=== PATIENT | male | born 1970 | race Caucasian/White ===

== ENCOUNTER 2019-06-14 12:32 | Emergency (ER) | payer BC ==
[~2019-06-14] VITALS: Ht 182.9 cm; Wt 138.6 kg
[~2019-06-14 12:32] MED LIST: ACETAMINOPHEN-1 EAC1 PO; CLEOCIN HCL300 MG PO; FLEXERIL PO; HYDROCODON-ACE1 EAC7 PO; HYDROCODONE-AP1 EAC6 PO; KEFLEX500 MG PO; NAPROSYN500 MG PO; NOHOMEMEDICATIONS; NORCO 5-325 TA1 EACH PO
[2019-06-14 13:38] LABS: URINE BILIRUBIN NEGATIVE (Negative); URINE BLOOD NEGATIVE (Negative); URINE CLARITY CLEAR; URINE COLOR YELLOW; URINE GLUCOSE-RANDOM* NEGATIVE (Negative); URINE KETONES NEGATIVE (Negative); URINE LEUKOCYTES-REFLEX NEGATIVE (Negative); URINE NITRITE-REFLEX NEGATIVE (Negative); URINE PROTEIN (DIPSTICK) TRACE (Negative)
[2019-06-14 13:58] LABS: ABSOLUTE NEUTROPHILS 8.7 thou/uL (1.4-8.2); BASOPHILS 0.5 % (0.0-2.0); EOSINOPHILS 2.8 % (0.0-3.0); HEMATOCRIT 37.9 % (42.0-52.0); HEMOGLOBIN 12.4 gm/dL (14.0-18.0); LYMPHOCYTES 12.2 % (24.0-44.0); MCH 25.9 pg (26.0-34.0); MCHC 32.6 g/dL (28.0-37.0); MCV 79.5 fL (80.0-100.0); MONOCYTES 7.1 % (1.0-8.0); PLATELET COUNT 223 thou/uL (150-400); POLYS 77.4 % (36.0-66.0); RBC 4.77 mil/uL (4.50-6.00); RDW 15.9 % (10.5-14.5); WBC 11.2 thou/uL (4.0-11.0)
[2019-06-14 14:03] LABS: CALCIUM 9.2 mg/dL (8.5-10.1); POTASSIUM 4.3 mmol/L (3.5-5.1)
[2019-06-14 14:08] LABS: ALBUMIN 3.3 g/dL (3.4-5.0); DIRECT BILIRUBIN 0.3 mg/dL (<0.1-0.3); TOTAL BILIRUBIN 1.1 mg/dL (<0.1-1.0); TOTAL PROTEIN 7.3 g/dL (6.4-8.2)
[2019-06-14] MEDS ORDERED: CYCLOBENZAPRINE5 MG PO (15:17)
[2019-06-14] MEDS ORDERED: NORCO 5-325 TA1 EAC1 PO (15:17)
[2019-06-14 15:37] VITALS: BP 130/85
== END 2019-06-14 15:38 | disposition home or self-care (01) ==
LOC: ER 12:32
PROVIDERS: Emergency Medicine
DX: K92.2 Gastrointestinal hemorrhage, unspecified (principal); Z88.6 Allergy status to analgesic agent; Z88.0 Allergy status to penicillin; Z88.8 Allergy status to other drugs, medicaments and biological substances

== ENCOUNTER 2019-08-08 16:24 | Inpatient (IN) | payer BC ==
[~2019-08-08] VITALS: Ht 182.9 cm; Wt 135.2 kg
[~2019-08-08 16:24] MED LIST changes: +CYCLOBENZAPRINE5 MG PO; +NORCO 5-325 TA1 EAC1 PO
[2019-08-08 16:30] VITALS: BP 137/77
[2019-08-08 17:44] LABS: ABSOLUTE NEUTROPHILS 8.3 thou/uL (1.4-8.2); EOSINOPHILS 3.9 % (0.0-3.0); HEMATOCRIT 40.2 % (42.0-52.0); HEMOGLOBIN 12.6 gm/dL (14.0-18.0); MCH 25.1 pg (26.0-34.0); MCHC 31.3 g/dL (28.0-37.0); MONOCYTES 8.6 % (1.0-8.0); PLATELET COUNT 219 thou/uL (150-400); POLYS 74.5 % (36.0-66.0); RBC 5.02 mil/uL (4.50-6.00); RDW 16.6 % (10.5-14.5); WBC 11.1 thou/uL (4.0-11.0)
[2019-08-08 17:53] LABS: ANION GAP 9 mmol/L (7-16); BUN 17 mg/dL (7-18); CALCIUM 8.8 mg/dL (8.5-10.1); CHLORIDE 102 mmol/L (98-107); CO2 29 mmol/L (21-32); GLUCOSE 116 mg/dL (74-106); POTASSIUM 4.4 mmol/L (3.5-5.1); SODIUM 140 mmol/L (136-145)
[2019-08-08 18:03] LABS: ALBUMIN 3.5 g/dL (3.4-5.0); SGOT 28 U/L (15-37); SGPT 32 U/L (30-65); TOTAL BILIRUBIN 1.1 mg/dL (<0.1-1.0); TOTAL PROTEIN 7.5 g/dL (6.4-8.2); TROPONIN-I <0.06 ng/mL (<0.06)
[2019-08-08 19:58] VITALS: BP 132/73
[2019-08-08 20:13] VITALS: BP 125/83
[2019-08-08 20:19] LABS: CHOLESTEROL 161 mg/dL (<200); HDL CHOLESTEROL 29 mg/dL (>40); LDL CHOLESTEROL 120 mg/dL (<100); SERUM ASSESSMENT Clear; TC:HDL 5.6 Ratio (Not establshd); TRIGLYCERIDE 60 mg/dL (<150); VLDL 12 mg/dL (<40)
[2019-08-08 22:06] VITALS: BP 142/84
[2019-08-09 05:00] VITALS: BP 141/90
[2019-08-09 05:07] LABS: GLYCOHEMOGLOBIN (HGB A1C) 6.3 % (4.8-5.6)
--- NOTE | 2019-08-09 05:58 | NUR ---
ASSUME CARE 2200. PT/VITALS STABLE. DENIES ANY PAIN. DIFFICULTY BREATHING BOTED WITH O2 SATS T 94%. 2L NC FR COMFORT. RESTING WELL. VOIDING COPIOUS AMOUNT DUE TO LASIX IV GIVEN. CARDIOLOGY AND PULMONARY CONSULTS. ASSESSMENT CHARTED. ST ON MONITOR. WILL FOLLOW WIHT POC FROM CARIOLOGY AND PULMONARY STAND POINT. WILL CONTINUE TO MONITOR PATIENT
[2019-08-09 06:32] LABS: HEMATOCRIT 38.8 % (42.0-52.0); HEMOGLOBIN 11.9 gm/dL (14.0-18.0); MCH 24.8 pg (26.0-34.0); MCHC 30.6 g/dL (28.0-37.0); RBC 4.78 mil/uL (4.50-6.00); RDW 16.7 % (10.5-14.5); WBC 11.2 thou/uL (4.0-11.0)
[2019-08-09 06:42] LABS: CALCIUM 8.6 mg/dL (8.5-10.1); CREATININE 0.9 mg/dL (0.7-1.3); POTASSIUM 4.4 mmol/L (3.5-5.1)
[2019-08-09 07:26] VITALS: BP 146/73
--- NOTE | 2019-08-09 10:19 | EKG ---
[address] [employer] [place] [address] ELECTROCARDIOGRAM REPORT Name: BHAVANA LARSON Room #: 218-P ADM IN M.R.#: [id number] Admission: 08/08/19 Attend Phys: Miguel Dixon Discharge: Date of : 74 Report #: [id number] THIS REPORT FOR: //name// [facility] ED Test Date: 2019-08-08 Test Time: 16:35:02 Pat Name: BHAVANA LARSON Department: Room: 218 Gender: M Alemite Operator: REBECCA : 1970 Requested By: Giselle Hicks Order Number: [id number] MD: Hubert Domínguez Measurements Intervals [place] Rate: 103 P: 60 VT: 180 QRS: 66 QRSD: 86 T: 263 QT: 335 QTc: 439 Interpretive Statements Sinus tachycardia Left atrial enlargement ST segment abnormalities in the anterolateral leads, rule out ischemia No previous ECG available for comparison Electronically Signed On 08-09-2019 10:19:13 CDT by Hubert Domínguez [email or web address] <ELECTRONICALLY SIGNED> By: Hubert Domínguez MD 08/09/19 1019 1635 1635 Hubert Domínguez MD /EPI
[2019-08-09 12:04] VITALS: BP 114/59
[2019-08-09 15:15] VITALS: BP 139/73
--- NOTE | 2019-08-09 15:49 | 2DMMODE ---
[facility] [address] [place] [address] 2 D/M-MODE ECHOCARDIOGRAM Name: BHAVANA LARSON Room #: 218-P [facility] IN ..#: [id number] Admission: 08/08/19 Attend Phys: Miguel Pitts Discharge: Date of : 74 Report #: [id number] THIS REPORT FOR: //name// APPROVED REPORT Study performed: 08/09/2019 09:57:08 EXAM: Comprehensive 2D, Doppler, and color-flow Echocardiogram Patient Location: In-Patient Room #: 218 Status: routine BSA: 2.58 HR: 111 bpm BP: 130/84 mmHg Rhythm: Tachycardia Other Information Study Quality: Fair Technically limited study due to body habitus. Echo Enhancing Agent Indication: Endocardial border delineation Agent(s) / Amount(s) Used: Optison 3 cc 2D Dimensions IVSd: 16.96 (7-11mm) LVOT Diam: 25.19 (18-24mm) LVDd: 38.87 mm PWd: 18.10 (7-11mm) Ascending Ao: 31.58 (22-36mm) LVDs: 24.53 (25-40mm) Left Atrium: 53.32 (27-40mm) Aortic Root: 34.81 mm Volumes Left Atrial Volume (Systole) Single Plane 4CH: 48.72 mL Single Plane 2CH: 52.47 mL Aortic Valve AoV Peak Juan Francisco.: 1.15 m/s AO Peak Gr.: 5.25 mmHg AO Mean Gr.: 2.32 mmHg AO V2 Mean: 0.69 m/s AO V2 VTI: 17.16 cm Pulmonary Valve PV Peak Juan Francisco.: 0.72 m/s PV Peak Gr.: 2.09 mmHg [facility] [address] [address] 2 D/M-MODE ECHOCARDIOGRAM Name: BHAVANA LARSON Room #: 218-P [facility] IN ..#: [id number] Admission: 08/08/19 Attend Phys: Miguel Mojica Mar Discharge: Date of : 74 Report #: [id number] Left Ventricle The left ventricle is normal size. Moderate concentric left ventricular hypertrophy. The left ventricular systolic function is normal. The left ventricular ejection fraction is within the normal range. LVEF is 60-65%. This study is not technically sufficient to allow evaluation of the LV diastolic function. Right Ventricle Right ventricle is not well visualized. Atria The left atrium size is normal. Right atrium is at the upper limits of normal. Aortic Valve The aortic valve is normal in structure. No aortic regurgitation is present. Mitral Valve The mitral valve is normal in structure. Mild mitral regurgitation. Tricuspid Valve The tricuspid valve is normal in structure. There is no tricuspid valve regurgitation noted. Pulmonic Valve There is no pulmonic valvular regurgitation. Great Vessels The aortic root is normal in size. The ascending aorta is normal in size. IVC is normal in size and collapses <50% with inspiration. Pericardium There is no pericardial effusion. <Conclusion> Technically difficult study The left ventricle is normal size. Moderate concentric left ventricular hypertrophy. The left ventricular systolic function is normal. Right ventricle is not well visualized. The left atrium size is normal. The aortic valve is normal in structure. [facility] [address] [place] [address] 2 D/M-MODE ECHOCARDIOGRAM Name: BHAVANA LARSON Room #: 218-P [facility] IN [facility].#: [id number] Admission: 08/08/19 Attend Phys: Miguel Pitts Discharge: Date of : 74 Report #: [id number] Mild mitral regurgitation. There is no tricuspid valve regurgitation noted. <ELECTRONICALLY SIGNED> By: Hubert Domínguez MD 08/09/19 1549 154 48 Hubert Domínguez MD /INF
--- NOTE | 2019-08-09 16:40 | NUR ---
Assumed pt care this am, ST on the monitor but with no signs of disitress noted. Fluid restriction of 1750 maintianed alotted 1000 ml for the day and 750 at night. Pt has learning defieciencies and seems not to retain information given like multiple education sessions on fluid restriction and what kinds fall under fluids (jello). Pt would ask for fluids and any kind of food through out the day. Edema has been noted on all extremitied and more prominent on the feet. Pt is able to urinate using the urinal for measure I & O monitered. Pt claimed to have been coughing for years and wanted to inform the MD that they are requesting for a cough drop, informed Dr. Yusuf. Pt refused to have more activity due to sob. No pain has been verbalized. POC followed, no signs or verbalization sof distress have been noted.
[2019-08-09 20:13] VITALS: BP 132/70
[2019-08-09 23:28] VITALS: BP 125/74
--- NOTE | 2019-08-10 03:58 | NUR ---
ASSESSMENT DOCUMENTED.PT BEEN RESTING IN NO ACUTE DISTRESS.VSS.ON NOCTURNAL STUDIES.VSS.A/OX4.C/O MUSCLE SPASMS ASKING FOR BIOFREEZE,TANGIBLE PERSONAL PROPERTY APPRAISER NOTIFIED MARILIA SIFUENTES ORDERED.C/O COUGH THAT WAS CONTROLLED BY COUGH MEDICINE. AT BEDSIDE.POC IS TO CONT WITH ORDERS.
[2019-08-10 04:56] LABS: CALCIUM 8.5 mg/dL (8.5-10.1); CREATININE 1.1 mg/dL (0.7-1.3); POTASSIUM 4.2 mmol/L (3.5-5.1)
[2019-08-10 04:59] VITALS: BP 100/46
[2019-08-10 05:37] LABS: HEMATOCRIT 37.3 % (42.0-52.0); HEMOGLOBIN 11.8 gm/dL (14.0-18.0); MCH 25.4 pg (26.0-34.0); MCHC 31.6 g/dL (28.0-37.0); MCV 80.3 fL (80.0-100.0); RBC 4.65 mil/uL (4.50-6.00); WBC 9.9 thou/uL (4.0-11.0)
--- NOTE | 2019-08-10 07:27 | HC ---
[facility] [place] [address] CONSULTATION Name: BHAVANA LARSON Room #: 218-P [facility] IN M.R.#: [id number] Admission: 08/08/19 Attend Phys: Miguel Dixon Discharge: Date of : 74 Report #: [id number] THIS REPORT FOR: //name// CC: SAMANTHA physician/PCP Miguel Dixon DATE OF SERVICE: 08/09/2019 CARDIOLOGY CONSULTATION INDICATION: Dyspnea. HISTORY OF PRESENT ILLNESS: This is a 48-year-old gentleman with a history of bronchitis, obesity, noncompliance, presenting with dyspnea and near syncope. He reports having progressive dyspnea with exertion over the past year or so. The other day, after walking about 20 yards, he developed significant dyspnea and lightheadedness. He almost passed out. He denies any episodes of exertional angina. There is no history of palpitations or orthopnea. He has not seen a doctor in several years. He was diagnosed with tachycardia several years ago and prescribed metoprolol. However, he has not been taking any prescription medications. He used to smoke cigarettes, has not smoked in a few years. He does drink alcohol, once a week. There is no history of fever, chills or diarrhea. PAST MEDICAL HISTORY: Bronchitis, meningitis. ALLERGIES: ASPIRIN, PENICILLIN AND COMPAZINE. MEDICATIONS: None. SOCIAL HISTORY: Former tobacco use. Drinks alcohol once a week. FAMILY HISTORY: Negative for premature CAD. REVIEW OF SYSTEMS: A full 10-point review of systems performed. Only the pertinent positives and negatives are described in the HPI. PHYSICAL EXAMINATION: VITAL SIGNS: Blood pressure is 146/70, heart rate is 100 beats per minute. GENERAL APPEARANCE: An overweight male in no acute distress. HEENT: Normocephalic, atraumatic. Oral mucosa moist. NECK: Supple. LUNGS: Clear to auscultation. CARDIAC: Regular rate and rhythm, S1, S2 positive. ABDOMEN: Soft, nontender. EXTREMITIES: No cyanosis, 2-3+ bilateral lower extremity edema. [facility] [address] [place] [address] CONSULTATION Name: BHAVANA LARSON Room #: 218-P [facility] IN .R.#: [id number] Admission: 08/08/19 Attend Phys: Miguel Dixon Discharge: Date of : 74 Report #: [id number] ECG reveals sinus tachycardia at 103 beats per minute, ST segment depressions in the inferior and anterolateral leads, rule out ischemia. LABORATORY VALUES: White count is 11.2, hemoglobin is 11.9, creatinine is 1.0. Troponin is negative. BNP is elevated at 4023. ASSESSMENT AND PLAN: 1. Dyspnea on exertion, the etiology is unclear, partly related to deconditioning and obesity. He has not seen a physician in several years. Does not appear to be in overt heart failure. We will need an echocardiogram to assess his LV function. 2. Abnormal ECG, may be related to undiagnosed hypertension. We will need an ischemic evaluation given his presentation. 3. Hypertension, mildly elevated blood pressure. Start low dose beta mady for now. 4. Edema, continue with diuresis at this time. Check venous ultrasound. <ELECTRONICALLY SIGNED> By: Hubert Domínguez MD 08/10/19 0727 1034 0021 Hubert Domínguez MD /nt
[2019-08-10 11:52] VITALS: BP 93/55
[2019-08-10 15:41] VITALS: BP 106/64
[2019-08-10 20:00] VITALS: BP 126/73
--- NOTE | 2019-08-11 03:50 | NUR ---
ASSUMED PT CARE AT 1900. PT C/O OF PAIN AND SOB WHEN MOVING AND COUGHING. GAVE PM MEDS WITH COUGH MEDICINE AND PT C/O RINGING SOUND IN EARS WHILE SITTING. ADVISED PT THAT IF DIZZY WHEN TRYING TO GET UP TO CALL. PT AT BEDSIDE. PT IS NPO AT MIDNIGHT TO PREPARE FOR STRESS TEST TODAY. PT HAS VARIOUS CONCERNS ABOUT HEALTH AND ADVISED WOULD NEED TO SPEAK WITH PHYSICIAN WHEN ROUNDS ARE MADE. PT SLEPT THRU NIGHT. WILL CONTINUE TO MONITOR PER POC.
[2019-08-11 04:00] VITALS: BP 120/76
[2019-08-11 05:06] LABS: HEMOGLOBIN 12.1 gm/dL (14.0-18.0); MCV 80.6 fL (80.0-100.0); RBC 4.84 mil/uL (4.50-6.00); RDW 16.8 % (10.5-14.5); WBC 9.4 thou/uL (4.0-11.0)
[2019-08-11 05:13] LABS: CALCIUM 8.7 mg/dL (8.5-10.1); CREATININE 1.2 mg/dL (0.7-1.3); POTASSIUM 4.8 mmol/L (3.5-5.1)
--- NOTE | 2019-08-11 15:54 | NUR ---
ASSUMED CARE AT 0700, SHIFT ASSSESSMENT DONE, NPO SINCE LAST NIGHT FOR NM STRESS TEST TODAY. [facility] WAS CALLED AND BECAUSE THEY HAVE A MACHINE DONE, IT WAS DELAYED UNTIL 1300. CAME BACK FROM PROCEDURE AT 1500. ATE LUNCH, NSR ON TELE. WILL CONTINUE TO ASSESS AND ASSIST WITH ADLs A NEEDED.
[2019-08-11 19:39] VITALS: BP 107/57
[2019-08-12 04:38] VITALS: BP 129/78
[2019-08-12 06:12] LABS: CALCIUM 8.7 mg/dL (8.5-10.1); CREATININE 1.2 mg/dL (0.7-1.3); POTASSIUM 4.6 mmol/L (3.5-5.1)
--- NOTE | 2019-08-12 06:41 | NUR ---
ASSUMED PT CARE AT 1900. PT VSS WITH NO C/O OF PAIN. RAC IV INFILTRATED PLACED LAC 20G. PT HAS BEEN NPO SINCE MIDNIGHT FOR STRESS TEST TODAY. PT C/O PAIN TOWARDS 0600 PRN MEDICATION ADMINISTERED AND SEEMS TO BE WORKING PT IS SLEEP. WILL CONTINUE TO MONITOR PER POC.
[2019-08-12 08:40] VITALS: BP 139/90
[2019-08-12 12:29] VITALS: BP 116/76
[2019-08-12] MEDS ORDERED: COREG6.25 MG PO (14:25)
[2019-08-12] MEDS ORDERED: PROAIR HFA8.5 GM INH (14:26)
[2019-08-12] MEDS ORDERED: CLINDAMYCIN HC300 MG PO (14:33)
[2019-08-12] MEDS ORDERED: TORSEMIDE20 MG PO (14:33)
[2019-08-12 14:53] VITALS: BP 116/76
--- NOTE | 2019-08-12 15:30 | NUR ---
PT CARE ASSUMED APPROX 0700. PT ALERT AND ORIENTED X4. DENIES PAIN AND SOA. VSS. UP WITH STEADY GAIT. DISCHARGE EDUCATION DONE WITH PT AND SPOUSE. BOTH DENY QUESTIONS OR CONCERNS REGARDING DISCHARGE INFORMATION OR POST HOSPITAL CARE. ALL BELONGINGS IN PT POSSESSION. IV OUT, TELE BOX OFF. HOSPITAL STAFF TO ESCORT PT OUT TIMELY.
== END 2019-08-12 15:42 | disposition home or self-care (01) | DRG 292 ==
LOC: ER 16:24 → EROBS 19:39 → 2N 19:39 → ENTRNSPT 08-12 15:25 → EDTRNSPTSTS 08-12 15:37 → 2N 08-12 15:42
PROVIDERS: Hospitalist; Internal Medicine Cardiovascular Disease; Nurse Practitioner Family; Physician Assistant; ADMIT Hospitalist
DX: I11.0 Hypertensive heart disease with heart failure (principal); I50.33 Acute on chronic diastolic (congestive) heart failure; R59.1 Generalized enlarged lymph nodes; F10.10 Alcohol abuse, uncomplicated; E66.01 Morbid (severe) obesity due to excess calories; F17.210 Nicotine dependence, cigarettes, uncomplicated; Z68.41 Body mass index [BMI] 40.0-44.9, adult; Z88.6 Allergy status to analgesic agent; Z88.0 Allergy status to penicillin; Z88.8 Allergy status to other drugs, medicaments and biological substances
CPT/HCPCS: 10081

== ENCOUNTER 2019-09-02 16:00 | Inpatient (IN) | payer BC ==
[~2019-09-02] VITALS: Ht 182.9 cm; Wt 142.7 kg
[2019-09-02 16:00] VITALS: BP 116/75
[~2019-09-02 16:00] MED LIST changes: +CLINDAMYCIN HC300 MG PO; +COREG6.25 MG PO; +PROAIR HFA8.5 GM INH; +TORSEMIDE20 MG PO
[2019-09-02 17:03] LABS: ABSOLUTE NEUTROPHILS 7.8 thou/uL (1.4-8.2); EOSINOPHILS 3.7 % (0.0-3.0); HEMATOCRIT 37.2 % (42.0-52.0); HEMOGLOBIN 11.8 gm/dL (14.0-18.0); LYMPHOCYTES 13.5 % (24.0-44.0); MCH 25.1 pg (26.0-34.0); MCHC 31.8 g/dL (28.0-37.0); MCV 78.9 fL (80.0-100.0); PLATELET COUNT 199 thou/uL (150-400); POLYS 73.8 % (36.0-66.0); RBC 4.72 mil/uL (4.50-6.00); RDW 17.2 % (10.5-14.5); WBC 10.5 thou/uL (4.0-11.0)
[2019-09-02] MEDS ORDERED: FLEXERIL PO (17:10)
[2019-09-02 17:11] LABS: CALCIUM 8.8 mg/dL (8.5-10.1); CREATININE 1.1 mg/dL (0.7-1.3)
[2019-09-02] MEDS ORDERED: NORCO 5-325 TA1 EAC1 PO (17:11)
--- NOTE | 2019-09-02 17:11 | EKG ---
[facility] [address] [place] [address] ELECTROCARDIOGRAM REPORT Name: BHAVANA LARSON Room #: [facility] M.R.#: [id number] Admission: Attend Phys: Discharge: Date of : 74 Report #: [id number] THIS REPORT FOR: //name// [facility] ED Test Date: 2019-09-02 Test Time: 16:10:46 Pat Name: BHAVANA LARSON Department: Room: Gender: M Director Of Public Relations: PATRIA : 1970 Requested By: Js Schmitt Order Number: [id number] MD: Manuel Valente Measurements Intervals [place] Rate: 155 P: 61 PA: 102 QRS: 38 QRSD: 118 T: 246 QT: 270 QTc: 434 Interpretive Statements Atrial flutter with 2-1 AV conduction Repol abnrm suggests ischemia, diffuse leads Compared to ECG 08/08/2019 16:35:02 Atrial flutter is now present ST and T wave abnormality is more pronounced Electronically Signed On 09-02-2019 17:11:12 SOCIAL SERVICE TECHNICIAN by aMnuel Valente [email or web address] <ELECTRONICALLY SIGNED> By: Manuel Valente MD, [facility] 09/02/19 1711 1610 09 Manuel Valente MD, [facility] /EPI
[2019-09-02 17:20] LABS: TROPONIN-I 0.42 ng/mL (<0.06)
[2019-09-02 18:11] LABS: AMP/METHAMP Negative (Negative); BARBITURATES Negative (Negative); BENZODIAZEPINES Negative (Negative); COCAINE Negative (Negative); METHADONE Negative (Negative); OPIATES Negative (Negative); PCP Negative (Negative)
[2019-09-02 19:00] LABS: CHOLESTEROL 169 mg/dL (<200); HDL CHOLESTEROL 27 mg/dL (>40); LDL CHOLESTEROL 120 mg/dL (<100); TC:HDL 6.3 Ratio (Not establshd); TRIGLYCERIDE 114 mg/dL (<150); VLDL 23 mg/dL (<40)
[2019-09-02 19:21] VITALS: BP 116/61
[2019-09-02 19:50] VITALS: BP 116/61
[2019-09-02 20:00] VITALS: BP 104/62
[2019-09-03] VITALS (14 sets, daily range): BP systolic 93–114; BP diastolic 51–70
[2019-09-03 03:09] LABS: GLYCOHEMOGLOBIN (HGB A1C) 6.4 % (4.8-5.6)
--- NOTE | 2019-09-03 04:16 | NUR ---
ASSUMED CARE OF PT AT 0300. ALERT AND ORIENTED. VSS, WITH SOFT PRESSURES. ON CARDIZEM DRIP. CURRENTLY AT 10ML/HR. DENIES CHEST PAIN, SOB. ONE EMESIS EPISODE , ZOFRAN GIVEN BEFORE ASSUMING CARE. LUNCH TRAY GIVEN TO PT. REMAIN IN AFIB AFLUTTER RATE CONTROLLED. NO FURTHER C/O NOTED . WILL CONTINUE TO FOLLOW POC.
[2019-09-03 05:25] LABS: HEMATOCRIT 40.7 % (42.0-52.0); HEMOGLOBIN 12.6 gm/dL (14.0-18.0); MCHC 30.9 g/dL (28.0-37.0); RBC 5.03 mil/uL (4.50-6.00); RDW 18.4 % (10.5-14.5)
[2019-09-03 05:41] LABS: ALBUMIN 3.2 g/dL (3.4-5.0); CALCIUM 8.7 mg/dL (8.5-10.1); CREATININE 1.5 mg/dL (0.7-1.3); PHOSPHORUS 6.2 mg/dL (2.5-4.9); POTASSIUM 4.9 mmol/L (3.5-5.1)
--- NOTE | 2019-09-03 14:06 | NUR ---
Case opened to follow for dc planning. Pt is a&ox4 and lives with his . He reports that he works fulltime and was indep and no health issues until recently. He is having a cardiac cath today. He notes increased sob and limited endurance. He is working with his HR dept to access his short term disablity benefits and medical leave. His is supportive. He is feeling overwhelmed with being told he is pre-diabetic and possibley had a mild heart attack. He is hoping the procedure today will informative and help him feel better. Support provided. No cm interventions indicated at this time. Will remain available should dc needs arise.
--- NOTE | 2019-09-03 17:55 | NUR ---
ASSUMED CARE OF PT AT SHIFT CHANGE. ASSESSMENTS CHARTED. MEDS GIVEN PER MAR. A&OX4. PT ON 2L NC. NO C/O PAIN OR SOA. BP SYS DROPPED BELOW 100, STOPPED IV CARDIZEM. NOTIFIED ELECTRIC REFRIGERATOR PREPARER. PT WENT TO LPN, NO INTERVENTIONS. RT GROIN SITE IS CDI. PT SLEEPING. BEDREST DONE AT 1720. PT SBA AFTER BEDREST. AT BEDSIDE. WILL CONTINUE TO MONITOR AND FOLLOW POC.
[2019-09-04] VITALS (7 sets, daily range): BP systolic 103–135; BP diastolic 47–73
--- NOTE | 2019-09-04 04:41 | NUR ---
PT POST CATH. NO HEMATOMA, GROIN CLEAN DRY AND INTACT. PT ALERT AND ORIENTED. REPORTS BACK PAIN DUE TO LAYING ON O.R TABLE FOR LONG.TYLENOL GIVEN X1. PT CONTINUE TO C/O OF BLOOD STOOL. BRIGHT RED BLOOD EVIDENT TOILET. CIGARETTE PACKAGE EXAMINER TOMA NOTIFIED. STOOL SAMPLE SENT TO LAB. NO FURTHER C/O. VSS. WILL CONTINUE TO FOLLOW POC.
[2019-09-04 05:47] LABS: HEMATOCRIT 40.1 % (42.0-52.0); HEMOGLOBIN 12.5 gm/dL (14.0-18.0); MCH 25.4 pg (26.0-34.0); MCHC 31.3 g/dL (28.0-37.0); MCV 81.1 fL (80.0-100.0); RBC 4.95 mil/uL (4.50-6.00); RDW 17.9 % (10.5-14.5); WBC 14.2 thou/uL (4.0-11.0)
[2019-09-04 05:57] LABS: CALCIUM 8.9 mg/dL (8.5-10.1); CREATININE 1.4 mg/dL (0.7-1.3); POTASSIUM 4.9 mmol/L (3.5-5.1)
--- NOTE | 2019-09-04 17:50 | NUR ---
ASSUMED CARE OF PT SHIFT CHANGE. ASSESSMENTS CHARTED. MEDS GIVEN PER MAR. VSS. HR WAS ELEVATED IN AM, NOW IN 60S-70S. PT A&OX4. ON 3L NC. C/O BLOOD IN TOILET AFTER STOOLS. POSSIBLE HEMMROIDS. CONSULTING SURGERY. AT BEDSIDE. WILL CONTINUE TO MONITOR AND FOLLOW POC.
[2019-09-05 03:47] LABS: CALCIUM 8.6 mg/dL (8.5-10.1); CREATININE 1.6 mg/dL (0.7-1.3); POTASSIUM 4.6 mmol/L (3.5-5.1)
--- NOTE | 2019-09-05 03:55 | NUR ---
A/O X 4.UP TO THE CHAIR. IS IN THE ROOM WITH PATIENT.COMPLAIN IV ACCESS HURTS.TRIED TO PLACE A NEW IV ACCESS BUT UNSUCCESFUL.PATIENT DECIDED NOT TO BE STUCK AGAIN AND HE'LL DECIDE TOMORROW IF HE WANTS TO BE STUCK.PATIENT IS HOPING TO GO HOME TODAY.O2 1L NASAL CANNULA TO KEEP SPO2 >92%.MONITOR SHOWS AFLUTTER WITH CONTROLLED RATE.WILL CONTINUE POC.
[2019-09-05 04:17] VITALS: BP 133/58
[2019-09-05] MEDS ORDERED: ELIQUIS5 MG PO (07:48)
[2019-09-05] MEDS ORDERED: CARDIZEM CD 18180 M3 PO (07:48)
[2019-09-05] MEDS ORDERED: LIPITOR40 MG PO (07:48)
[2019-09-05] MEDS ORDERED: ANUSOL-HC25 MG RECTAL (07:49)
[2019-09-05 07:50] VITALS: BP 117/76
[2019-09-05] MEDS ORDERED: CLEOCIN HCL150 MG PO (07:51)
[2019-09-05] MEDS ORDERED: AMARYL2 M1 PO (07:52)
--- NOTE | 2019-09-05 08:58 | CATHLAB ---
[facility] [address] [place] [address] INVASIVE PROCEDURE REPORT Name: BHAVANA LARSON Room #: 206-P ADM IN M.R.#: [id number] Admission: 09/02/19 Attend Phys: Miguel Pitts Discharge: Date of : 74 Report #: [id number] THIS REPORT FOR: //name// APPROVED REPORT Study performed: 09/03/2019 15:08:27 Patient Details Patient Status: In-Patient Room #: 206 The patient is a 48 year-old male Event Personnel Hubert Domínguez Baked And Graphite Inspector, Shayy Ching RN RN, Dora Washington RTR, DIRECTOR OF EVENT MANAGEMENT Monitor, July Stafford Jackson, Sherra RTR Monitor Procedures Performed Art Access - R femoral artery* Left Heart Cath w/or w/o Coronaries [id number] [facility] Hemostasis with Manual pressure 45746 Initial Mod Sed Same Phys/QHP Gr5y [id number] 80339 Mod Sed Same Phys/QHP Ea 552240 Indication CHF Current Status: , Arrhythmia, Dyspnea, The patient presented with atrial flutter with a rapid ventricular rate, significant ST segment depressions in the lateral leads with a positive troponin level. Risk Factors Obesity, HypercholesterolemiaPhysical Activity, Hypertension, Diabetes Previous Procedures/Diagnoses Previous CHF Procedure Narrative The Right Groin^ was infiltrated with 1% Lidocaine subcutaneous anesthesia. A PINNACLE 4FR Sheath #[id number] sheath was inserted into the RFA. Coronary angiography was performed using coronary diagnostic catheters. The right coronary system was accessed and visualized with a JR4 catheter. The left coronary system was accessed and visualized with a JL4 catheter. Left ventricular/Aortic Valve gradient assessed via catheter pullback. Hemostasis was obtained with manual pressure following sheath removal without any complications. The patient tolerated the procedure well and there were no complications [facility] [address] [place] [address] INVASIVE PROCEDURE REPORT Name: BHAVANA LARSON Room #: 206-P [facility] IN ..#: [id number] Admission: 09/02/19 Attend Phys: Miguel Pitts Discharge: Date of : 74 Report #: [id number] associated with the procedure. There was no hematoma. Intraoperative Conscious Sedation Sedation start time: 15:46 Case end Time: 16:10 Fentanyl 50 mcg Versed 1 mg Fluoro Time: 1.33 minutes Dose: DAP 4958.90 cGycm2 699 mGy Contrast Type and Amount: Visipaque 40 ml Coronary Angiography The patient's coronary anatomy is right dominant. Diagnostic Cath Left Main This is a large caliber vessel, patent with no flow-limiting lesions. LAD This is a moderate size caliber vessel, traversing the anterior wall and wrapping around the apex. There are no flow-limiting lesions. There may be minimal luminal irregularities in the midsegment. Diagonal 1 This is a patent vessel with no flow-limiting lesions. Circumflex There is a moderate size caliber vessel, patent with no flow-limiting lesions. OM1 This is a patent vessel with no flow-limiting lesions. OM2 This is a patent vessel with no flow-limiting lesions. Right Coronary There is a dominant vessel, patent with no flow-limiting lesions. R PDA This is a patent vessel with no flow-limiting lesions. RPLV This is a patent vessel with no flow-limiting lesions. Left Ventriculography Left Ventriculography was not performed. Ejection Fraction was >55% based off patient's Echocardiogram. There is no gradient across the outflow tract and the LVEDP is approximately 40 mmHg. Hemodynamics The aortic pressure is 109/74 mmHg with a mean of 84 mmHg. The left ventricular pressure is 104/36 mmHg with a mean of mmHg. The left ventricular end diastolic pressure is 41 mmHg. Conclusion 1. Angiographically normal coronary arteries, with minimal luminal [facility] [address] [place] [address] INVASIVE PROCEDURE REPORT Name: BHAVANA LARSON Greta Room #: 206-P [facility] IN .R.#: [id number] Admission: 09/02/19 Attend Phys: Miguel Pitts Discharge: Date of : 74 Report #: [id number] irregularities in the midsegment of the LAD. 2. Right dominant system. 3. Elevated LVEDP. 4. Recommend aggressive risk factor management and guideline directed medical therapy. <ELECTRONICALLY SIGNED> By: Hubert Domínguez MD 09/05/19856 6 6 Hubert Domínguez MD /INF
[2019-09-05] MEDS ORDERED: K-DUR 20 MEQ T20 MEQ PO (09:15)
[2019-09-05] MEDS ORDERED: DIGOXIN125 MCG PO (09:15)
[2019-09-05] MEDS ORDERED: DEMADEX20 MG PO (09:15)
[2019-09-05] MEDS ORDERED: METOPROLOL SUCC50 MG PO (09:15)
[2019-09-05 09:59] VITALS: BP 117/76
--- NOTE | 2019-09-05 12:09 | EKG ---
[place] [address] [facility] [place] [address] ELECTROCARDIOGRAM REPORT Name: BHAVANA LARSON Room #: 206-P ADM IN M.R.#: [id number] Admission: 09/02/19 Attend Phys: Miguel Dixon Discharge: Date of : 74 Report #: [id number] THIS REPORT FOR: //name// [facility] Test Date: 2019-09-03 Test Time: 08:12:09 Pat Name: BHAVANA LARSON Department: Room: 206 P Gender: M Cold Header Operator: Hector MOHR : 1970 Requested By: Alisa Zapata Order Number: [id number] MD: Hubert Domínguez Measurements Intervals [place] Rate: 95 P: IA: QRS: 91 QRSD: 86 T: 264 QT: 398 QTc: 501 Interpretive Statements Atrial flutter Borderline right axis deviation Abnormal R-wave progression, late transition ST segment abnormalities in the inferolateral leads, no change compared to baseline. Compared to ECG 09/02/2019 16:10:46 No significant changes Electronically Signed On 09-05-2019 12:09:17 COMMERCIAL DOOR INSTALLER by Hubert Domínguez [email or web address] <ELECTRONICALLY SIGNED> By: Hubert Domínguez MD 09/05/19 1209 1 1 Hubert Domínguez MD /EPI
[2019-09-05 12:38] LABS: URINE BILIRUBIN NEGATIVE (Negative); URINE BLOOD NEGATIVE (Negative); URINE CLARITY CLEAR; URINE COLOR YELLOW; URINE GLUCOSE-RANDOM* NEGATIVE (Negative); URINE KETONES NEGATIVE (Negative); URINE LEUKOCYTES-REFLEX NEGATIVE (Negative); URINE NITRITE-REFLEX NEGATIVE (Negative); URINE PROTEIN (DIPSTICK) NEGATIVE (Negative); URINE UROBILINOGEN 0.2 E.U./dl (0.2-1.0)
[2019-09-05 12:52] VITALS: BP 123/62
--- NOTE | 2019-09-05 13:40 | NUR ---
ASSUMED CARE PT AT SHIFT CHANGE. ASSESSMENTS CHARTED. MEDS GIVEN PER DEC. PT ALERT AND ORIENTED, VSS, SPOUSE AT BEDSIDE THROUGHOUYT SHIFT. PT HAD BLOODY STOOL THIS AM, BRIGHT RED. REPORTED TO GI. O2 SATS WNL ON 1L, EVENTUALLY TO ROOM AIR. PT HAD REST AND EXEERCISE, SEE RESULTS. DC ACKNOWLEDGED AND IMPLEMENTED. DC DISCUSSED WITH PT. COMMUNICATES UNDERSTANDING. IV REMOVED, TELE REMOVED. PT LEFT UNIT AT APPROX 1340.
--- NOTE | 2019-09-09 08:09 | HC ---
[facility] [place] [address] CONSULTATION Name: BHAVANA LARSON Room #: 206-P [facility] IN M.R.#: [id number] Admission: 09/02/19 Attend Phys: Miguel Dixon Discharge: 09/05/19 Date of : 74 Report #: [id number] THIS REPORT FOR: //name// CC: Miguel Domínguez DATE OF SERVICE: 09/03/2019 HISTORY OF PRESENT ILLNESS: The patient is a 48-year-old male patient admitted to the hospital through the Emergency Department with atrial flutter and lightheadedness. He had been experiencing some random chest pain. He was originally seen by Dr. Domínguez, Cardiology, in the office. He was noted to have some ulceration and swelling of his legs. I have been asked to see him in this regard. PAST MEDICAL HISTORY: Positive for history of previous meningitis, previous hand fracture, alcohol abuse. He has a past history of heavy smoking. SOCIAL HISTORY: Positive for previous heavy smoking, 5 packs per day until age 32. Admits to occasional alcohol consumption. FAMILY HISTORY: Noncontributory. MEDICATIONS: Include albuterol, torsemide, carvedilol, clindamycin. ALLERGIES: ASPIRIN, PENICILLIN, AND PROCHLORPERAZINE. REVIEW OF SYSTEMS: CONSTITUTIONAL: The patient denies fever or chills. Denies recent weight loss. ENT: The patient denies earache, nasal drainage or sore throat. CARDIOVASCULAR: The patient does complain of some chest discomfort as well as palpitations and diaphoresis. PULMONARY: The patient complains of mild shortness of breath with orthopnea. GASTROINTESTINAL: The patient denies nausea, vomiting, diarrhea or abdominal pain. Does have, however, some bleeding with bowel movements. GENITOURINARY: The patient denies frequency or urgency of urination. Denies dysuria. ORTHOPEDIC: The patient complains of pain and swelling and redness to his lower extremities. Other systems in a 14-point review of systems are negative. PHYSICAL EXAMINATION: VITAL SIGNS: At this time include temperature 98.1, pulse 56, respiratory rate 18, blood pressure 102/62. GENERAL: This is a chronically ill-appearing male patient who appears to be in minimal distress. [facility] [address] [place] [address] CONSULTATION Name: BHAVANA LARSON Room #: 206-P [facility] IN .R.#: [id number] Admission: 09/02/19 Attend Phys: Miguel Dixon Discharge: 09/05/19 Date of : 74 Report #: [id number] HEENT: Head normocephalic. Nose and throat are clear. NECK: Supple. LUNGS: Diminished. HEART: Tachycardic and irregular. ABDOMEN: Soft, obese, nontender. EXTREMITIES: Lower extremities demonstrate diminished, but palpable distal pulses. He has mild erythema and warmth to the legs bilaterally down to the ankle level. NEUROLOGIC: The patient is alert and oriented and appropriate. LABORATORY STUDIES: Include white blood cell count 10.5 with a hemoglobin of 11.8. Sodium 137, potassium 4.0, chloride 100, CO2 of 29, BUN 25, creatinine 1.1, glucose 202. Troponin I is 0.42. CLINICAL IMPRESSION: 1. Bilateral lower extremity edema with venous stasis dermatitis and possible mild cellulitis. 2. Congestive heart failure. 3. Hyperglycemia/prediabetes. 4. Tachycardia with elevated troponin. RECOMMENDATIONS: At this point in time, we will recommend 0.5% triamcinolone to the lower extremities, Tubigrips to both lower extremities. I have had a lengthy discussion with the need for maintenance of good diet and exercise regimen once he is cleared by Cardiology and that weight loss would be of significant benefit to his overall state of health. I appreciate being asked to see the patient in consultation. We will follow him closely here in the hospital. <ELECTRONICALLY SIGNED> By: Kartik Castillo MD 09/09/19 0809 1616 0423 Kartik Castillo MD /nt
== END 2019-09-05 13:40 | disposition home or self-care (01) | DRG 280 ==
LOC: ER 16:00 → 2N 18:19 → EROBS 18:19 → 2N 19:50 → ENTRNSPT 09-05 13:28 → EDTRNSPTSTS 09-05 13:30 → 2N 09-05 13:40
PROVIDERS: Emergency Medicine; Internal Medicine Cardiovascular Disease; Internal Medicine Gastroenterology; Nurse Practitioner Adult Health; ADMIT Hospitalist
PROC: 4A023N7 Measurement of Cardiac Sampling and Pressure, Left Heart, Percutaneous Approach (ICD-10-PCS; principal; 2019-09-03)
PROC: B211YZZ Fluoroscopy of Multiple Coronary Arteries using Other Contrast (ICD-10-PCS; principal; 2019-09-03)
DX: I21.4 Non-ST elevation (NSTEMI) myocardial infarction (principal); I50.31 Acute diastolic (congestive) heart failure; I48.92 Unspecified atrial flutter; L03.116 Cellulitis of left lower limb; L03.115 Cellulitis of right lower limb; Z68.41 Body mass index [BMI] 40.0-44.9, adult; I48.91 Unspecified atrial fibrillation; R73.9 Hyperglycemia, unspecified; R59.0 Localized enlarged lymph nodes; E66.9 Obesity, unspecified; E03.9 Hypothyroidism, unspecified; F10.10 Alcohol abuse, uncomplicated; E78.5 Hyperlipidemia, unspecified; I11.0 Hypertensive heart disease with heart failure; E74.39 Other disorders of intestinal carbohydrate absorption; Z87.81 Personal history of (healed) traumatic fracture; Z88.6 Allergy status to analgesic agent; Z88.0 Allergy status to penicillin; Z88.8 Allergy status to other drugs, medicaments and biological substances; Z87.891 Personal history of nicotine dependence; Z71.6 Tobacco abuse counseling
CPT/HCPCS: 10081

== ENCOUNTER 2019-09-10 20:10 | Inpatient (IN) | payer BC ==
[~2019-09-10] VITALS: Ht 182.9 cm; Wt 142.2 kg
[~2019-09-10 20:10] MED LIST changes: +AMARYL2 M1 PO; +ANUSOL-HC25 MG RECTAL; +CARDIZEM CD 18180 M3 PO; +CLEOCIN HCL150 MG PO; +DEMADEX20 MG PO; +DIGOXIN125 MCG PO; +ELIQUIS5 MG PO; +K-DUR 20 MEQ T20 MEQ PO; +LIPITOR40 MG PO; +METOPROLOL SUCC50 MG PO
[2019-09-10 20:12] VITALS: BP 96/48
[2019-09-10 20:33] LABS: HEMATOCRIT 40.9 % (42.0-52.0); HEMOGLOBIN 12.9 gm/dL (14.0-18.0); MCH 25.2 pg (26.0-34.0); MCHC 31.6 g/dL (28.0-37.0); MCV 79.6 fL (80.0-100.0); PLATELET COUNT 326 thou/uL (150-400); RBC 5.14 mil/uL (4.50-6.00); RDW 17.3 % (10.5-14.5); WBC 14.2 thou/uL (4.0-11.0)
[2019-09-10 20:39] LABS: ANION GAP 9 mmol/L (7-16); BUN 38 mg/dL (7-18); CALCIUM 8.8 mg/dL (8.5-10.1); CHLORIDE 97 mmol/L (98-107); CO2 25 mmol/L (21-32); CREATININE 2.2 mg/dL (0.7-1.3); GLUCOSE 164 mg/dL (74-106); POTASSIUM 5.3 mmol/L (3.5-5.1); SODIUM 131 mmol/L (136-145)
[2019-09-10 20:49] LABS: ALBUMIN 3.1 g/dL (3.4-5.0); SGOT 40 U/L (15-37); SGPT 34 U/L (30-65); TOTAL BILIRUBIN 1.3 mg/dL (<0.1-1.0); TOTAL PROTEIN 7.1 g/dL (6.4-8.2); TROPONIN-I <0.06 ng/mL (<0.06)
[2019-09-10 20:59] LABS: ABSOLUTE NEUTROPHILS 10.4 thou/uL (1.4-8.2)
[2019-09-10 21:00] LABS: ANISOCYTOSIS 1+; PLATELET ESTIMATE NORMAL; POIKILOCYTOSIS 1+
[2019-09-10 22:38] VITALS: BP 121/52
[2019-09-10 23:00] VITALS: BP 117/74
[2019-09-10 23:16] VITALS: BP 117/55
[2019-09-11 04:32] VITALS: BP 136/78
--- NOTE | 2019-09-11 05:51 | NUR ---
RECEIVED REPORT FROM JAYCE LOPES (HOUSE SUP).PATIENT ARRIVED TO ROOM 209 ACCOMPANIED BY HIS JOHANNA.PATIENT A/O X 4.DENIES PAIN.COMPLAIN OF SOB.PLACED ON O2 2L NC.HEART RATE IS IN THE 47'S THEN EVENTUALLY IN THE 70'S.PATIENT VERBALIZED HE FEELS GOOD THIS MORNING AND IS READY TO GO HOME IF ALLOWED TO GO HOME TODAY.POC CONTINUED.
[2019-09-11 07:18] VITALS: BP 114/70
--- NOTE | 2019-09-11 10:55 | NUR ---
ASSUMED CARE AT 0700, SHIFT ASSESSMENT DONE, MEDS GIVEN, VSS. DR NAQVI ROUNDED ON THE PT, IV FLUIDS STOPPED. AWIATING FOR MEDICATIONS TO BE RESTARTED. NSR ON TELE, REQUIRING 2LNC. DENIES PAIN, NAUSEA, VOMITING. WILL CONTINUE TO ASSESS AND ASSIST WITH ADLs NEEDED.
[2019-09-11 11:27] VITALS: BP 123/69
[2019-09-11 14:07] LABS: CALCIUM 8.3 mg/dL (8.5-10.1); CREATININE 1.8 mg/dL (0.7-1.3); POTASSIUM 4.7 mmol/L (3.5-5.1)
--- NOTE | 2019-09-11 17:08 | EKG ---
[address] [place] [address] ELECTROCARDIOGRAM REPORT Name: BHAVANA LARSON Room #: 209-P ADM IN M.R.#: [id number] Admission: 09/10/19 Attend Phys: cT Jung MD Discharge: Date of : 74 Report #: [id number] THIS REPORT FOR: //name// [facility] ED Test Date: 2019-09-10 Test Time: 20:19:58 Pat Name: BHAVANA LARSON Department: Room: 209 Gender: M Raw Shellfish Preparer: zoe : 1970 Requested By: Angela Nation Order Number: [id number] MD: Manuel Valente Measurements Intervals [place] Rate: 38 P: [place]: QRS: 52 QRSD: 86 T: 259 QT: 461 QTc: 367 Interpretive Statements Atrial fibrillation with a slow ventricular response Probable LVH with secondary repol abnrm ST depression, consider ischemia, diffuse lds Compared to ECG 09/03/2019 08:12:09 Atrial flutter no longer present Electronically Signed On 09-11-2019 17:07:43 POLICE INSPECTOR by Manuel Valente [email or web address] <ELECTRONICALLY SIGNED> By: Manuel Valente MD, FACC 09/11/19 1707 18 18 Manuel Valente MD, [facility] /EPI
--- NOTE | 2019-09-11 17:09 | EKG ---
[place] [address] [address] [employer] [address] ELECTROCARDIOGRAM REPORT Name: BHAVANA LARSON Room #: 209-P ADM IN M.R.#: [id number] Admission: 09/10/19 Attend Phys: Tc Jung MD Discharge: Date of : 74 Report #: [id number] THIS REPORT FOR: //name// [facility] ED Test Date: 2019-09-10 Test Time: 21:32:40 Pat Name: BHAVANA LARSON Department: Room: 209 Gender: M Truck Greaser: FABY : 1970 Requested By: Oliver Kc Order Number: [id number] MD: Manuel Valente Measurements Intervals [place] Rate: 42 P: [place]: QRS: 79 QRSD: 92 T: 267 QT: 513 QTc: 429 Interpretive Statements Atrial fibrillation Abnormal R-wave progression, late transition Repol abnrm, severe global ischemia (LM/MVD) Compared to ECG 09/03/2019 08:12:09 No significant change was found Electronically Signed On 09-11-2019 17:08:54 HAM FACER by Manuel Valente [email or web address] <ELECTRONICALLY SIGNED> By: Manuel Valente MD, [facility] 09/11/19 170 31 31 Manuel Valente MD, [facility] /EPI
[2019-09-11 20:09] VITALS: BP 128/76
--- NOTE | 2019-09-12 02:27 | NUR ---
ASSESSMENTS CHARTED, MEDS GIVEN CHARTED. PATIENT HAS RETURNED THIS TIME DUE TO BRADYCARDIA AND DIZZINESS. THE OPPOSITE OF WHAT HE WAS HERE FOR LAST WEEK. CARDIAC MEDS HAVE BEEN HELD TO DETERMINE CAUSE. PATIENT UP AT MILLI IN ROOM, AT BEDSIDE. CURRENT PLAN OF CARE IS TO DETERMINE IF HE NEEDS A PACEMAKER OR ABLATION IF AFIB/AFLUTTER RETURNS AN OUTPATIENT. PATIENT IS NEW DIAGNOSED WITH PREDIABETES. EDUCATION HAS BEEN GIVEN. PATIENT NEEDS REINFORCEMENT TEACHING FOR SELF BAKARI CARE.
[2019-09-12 04:13] VITALS: BP 108/53
[2019-09-12 05:30] LABS: CALCIUM 8.5 mg/dL (8.5-10.1); CREATININE 1.3 mg/dL (0.7-1.3); POTASSIUM 4.6 mmol/L (3.5-5.1)
[2019-09-12 07:21] VITALS: BP 131/84
[2019-09-12] MEDS ORDERED: DEMADEX20 MG PO (08:38)
[2019-09-12 11:31] VITALS: BP 136/82
[2019-09-12 16:13] VITALS: BP 139/76
--- NOTE | 2019-09-12 16:22 | EKG ---
[address] [place] [address] ELECTROCARDIOGRAM REPORT Name: BHAVANA LARSON Room #: 209-P ADM IN M.R.#: [id number] Admission: 09/10/19 Attend Phys: Tc Jung MD Discharge: Date of : 74 Report #: [id number] THIS REPORT FOR: //name// [facility] Test Date: 2019-09-12 Test Time: 12:44:43 Pat Name: BHAVANA LARSON Department: Room: 209 P Gender: M Production Operations Manager: Neda COUCH : 1970 Requested By: Tc Jung Order Number: [id number] MD: Manuel Valente Measurements Intervals [place] Rate: 98 P: 51 [place]: 181 QRS: 54 QRSD: 93 T: 257 QT: 352 QTc: 450 Interpretive Statements Sinus rhythm Probable left atrial enlargement Repol abnrm suggests ischemia, diffuse leads Compared to ECG 09/10/2019 21:32:40 Sinus rhythm is now present heart rate has increased Electronically Signed On 09-12-2019 16:22:15 ASSISTANT FEDERAL PUBLIC DEFENDER by Manuel Valente [email or web address] <ELECTRONICALLY SIGNED> By: Manuel Valente MD, [facility] 09/12/19 2905 1244 1244 Manuel Valente MD, [facility] /EPI
--- NOTE | 2019-09-12 17:59 | NUR ---
ASSUMED CARE OF PT AT SHIFT CHANGE. ASSESSMENTS CHARTED. MEDS GIVEN PER MAR. A&OX4. NO C/O PAIN. HR SUSTAINING IN 80S-100S. NO C/O SOA. COMMAND CENTER ANALYST SPOKE AT LENGTH WITH PT AND . PT UP AD MILLI. PT ON FLUID RESTRICTION OF 1750ML. PLAN TO DC SUNDAY OR SUNDAY. WILL CONTINUE TO MONITOR AND FOLLOW POC.
[2019-09-12 20:26] VITALS: BP 135/76
[2019-09-13 03:25] VITALS: BP 141/84
--- NOTE | 2019-09-13 04:33 | NUR ---
ASSESSMENTS CHARTED, MEDS GIVEN CHARTED. PATIENT RESTING IN ROOM DURING SHIFT. KEEPING FEET ELEVATED. ON LASIX THERAPY, DIURESING WELL. SINUS TACH DURING SHIFT IN LOW 100'S. PATIENT RECEIVED MORE NUTRITIONAL COUNCILING AND PLACED ON 1800 CC DIET. MAINTAINING FLUID RESTRICTIONS. C/O LEFT SHOULDER PAIN 03/07. PLAN IS TO RESUME BETA KAHLIL FOR DIASTOLIC DYSFUNCTION. CONTINUE TESTING FOR CAITLIN ON OUTPATIENT BASIS. PATIENT MAY GO HOME TODAY.
[2019-09-13 04:45] LABS: CALCIUM 8.8 mg/dL (8.5-10.1); CREATININE 1.2 mg/dL (0.7-1.3); POTASSIUM 4.6 mmol/L (3.5-5.1)
[2019-09-13 08:00] VITALS: BP 120/74
[2019-09-13] MEDS ORDERED: GLUCOPHAGE500 MG PO (10:18)
[2019-09-13] MEDS ORDERED: LASIX 40 MG TAB40 MG PO (10:19)
[2019-09-13 11:30] VITALS: BP 120/74
--- NOTE | 2019-09-13 12:40 | NUR ---
ASSUMED CARE OF PT AT SHIFT CHANGE. ASSESSMENTS CHARTED. MEDS GIVEN PER MAR. A&OX4. NO C/O SOA OR PAIN. PT UP AD MILLI. DC ORDERS AND INSTRUCTIONS COMPLETE. IV AND TELE DC'D. PT HAS ALL BELONGING. PT WALKED TO PARKING LOT WITH .
[2019-09-13 12:41] VITALS: BP 120/74
== END 2019-09-13 12:00 | disposition home or self-care (01) | DRG 309 ==
LOC: ER 20:10 → 2N 22:09 → EROBS 22:09 → 2N 22:40
PROVIDERS: Nurse Practitioner Family; ADMIT Hospitalist
DX: I48.92 Unspecified atrial flutter (principal); I50.30 Unspecified diastolic (congestive) heart failure; N17.9 Acute kidney failure, unspecified; R00.1 Bradycardia, unspecified; E78.5 Hyperlipidemia, unspecified; I48.91 Unspecified atrial fibrillation; E74.39 Other disorders of intestinal carbohydrate absorption; R59.1 Generalized enlarged lymph nodes; G47.33 Obstructive sleep apnea (adult) (pediatric); E66.01 Morbid (severe) obesity due to excess calories; E07.9 Disorder of thyroid, unspecified; I25.10 Atherosclerotic heart disease of native coronary artery without angina pectoris; I11.0 Hypertensive heart disease with heart failure; Z87.81 Personal history of (healed) traumatic fracture; Z88.6 Allergy status to analgesic agent; Z88.0 Allergy status to penicillin; Z88.8 Allergy status to other drugs, medicaments and biological substances; Z87.891 Personal history of nicotine dependence
CPT/HCPCS: 10081; 10194

== ENCOUNTER → 2019-09-22 | Outpatient (CLI) | payer BC ==
[~2019-09-22] MED LIST changes: +GLUCOPHAGE500 MG PO; +LASIX 40 MG TAB40 MG PO
--- NOTE | 2019-09-23 22:44 | SLE ---
[facility] [address] [address] POLYSOMNOGRAPHY STUDY Name: BHAVANA LARSON Room #: [facility].#: [id number] Admission: 09/22/19 Attend Phys: Reena Antonio MD Discharge: Date of : 74 Report #: [id number] THIS REPORT FOR: //name// CC: Reena SINGH physician/PCP Adi Gaming MD DATE OF SERVICE: 09/22/2019 SLEEP STUDY ATTENDING PHYSICIAN: Dr. Adi Gaming The patient is a 48-year-old who weighs 304 pounds with a BMI of 41.2. The patient had a home sleep study and was found to have severe CAITLIN at an AHI of 83 per hour along with severe nocturnal hypoxia. The patient was referred for in-lab CPAP titration study. During the night study, the patient spent 391 minutes in bed, but slept for only 40 minutes with a very poor sleep efficiency of 10%. Sleep latency was 76 minutes with an absent REM sleep. Sleep architecture showed 96% of time the patient slept on stage 1 sleep. There was only 3% of stage 2 sleep and no slow wave or REM sleep. EKG monitoring revealed normal sinus rhythm. Average heart rate was 79 beats per minute. No arrhythmias observed. PLMS were seen at an index of 19 per hour and 1.5 per hour caused EEG arousals. The patient was started on CPAP at a pressure of 5 cm water and titrated up to 11 cm of water. The patient hardly any sleep at 11 cm water and on 9 cm water, the patient slept for only 4 minutes with an AHI of 135 per hour. Due to limited sleep, optimum CPAP pressure was not achieved. IMPRESSION: 1. Severe sleep apnea diagnosed by previous home sleep study. 2. Severe insomnia, resulting in a sleep efficiency of only 10.2%. 3. Mild PLMS. RECOMMENDATIONS: 1. Optimum CPAP pressure was not achieved due to very limited sleep. I would recommend the patient should be placed on auto CPAP at a minimum pressure of 10 cm of water and a maximum pressure of 20 cm water. The patient should have a followup download data to assess the efficacy of the current auto PAP. If the patient's AHI remains high, then the patient should return for a BiPAP titration [facility] [address] [place] [address] POLYSOMNOGRAPHY STUDY Name: BHAVANA LARSON Room #: [facility].#: [id number] Admission: 09/22/19 Attend Phys: Reena Antonio MD Discharge: Date of : 74 Report #: [id number] study. 2. Follow up in 4-6 weeks to assess compliance and to document clinical improvement. 3. Weight loss is strongly advised. 4. Avoid VIDEO NETWORK ENGINEER depressants. 5. Cautioned regarding driving until symptoms of sleep apnea resolve with the use of CPAP. 6. If patient's insomnia is chronic, then it should be further evaluated and treated according to the etiology. <ELECTRONICALLY SIGNED> By: Vik Lisa MD 09/23/19 2244 1627 1657 Vik Lisa MD /nt
== END ==
LOC: SLEEPLAB 08:40
DX: G47.30 Sleep apnea, unspecified (principal)

== ENCOUNTER 2020-01-23 11:57 | Emergency (ER) | payer BC ==
[~2020-01-23] VITALS: Ht 182.9 cm; Wt 116.6 kg
[2020-01-23 12:21] VITALS: BP 119/72
--- NOTE | 2020-01-23 13:44 | EKG ---
[facility] [place] [address] ELECTROCARDIOGRAM REPORT Name: BHAVANA LARSON Room #: PRE M.R.#: [id number] Admission: Attend Phys: Discharge: Date of : 74 Report #: [id number] THIS REPORT FOR: cc: Oscar Chambers MD, Neal A. MD Couchonnal, Luis F. MD ~ THIS REPORT FOR: //name// [facility] ED Test Date: 2020-01-23 Test Time: 12:46:54 Pat Name: BHAVANA LARSON Department: Room: Gender: M Tissue Technician: luis : 1970 Requested By: Giselle Hicks Order Number: [id number] MD: Parviz Martinez Measurements Intervals [place] Rate: 98 P: 54 [place]: 169 QRS: 67 QRSD: 99 T: 264 QT: 343 QTc: 438 Interpretive Statements Sinus rhythm Probable left atrial enlargement RSR' in V1 or V2, probably normal variant ST changes similar to prior. Compared to ECG 09/12/2019 12:44:43 Electronically Signed On 01-23-2020 13:42:40 CDT by Parviz Martinez [email or web address] <ELECTRONICALLY SIGNED> By: Parviz Martinez MD 01/23/20 1342 1246 1246 Parviz Martinez MD /EPI
[2020-01-23 14:02] LABS: ABSOLUTE NEUTROPHILS 8.9 thou/uL (1.4-8.2); BASOPHILS 0.9 % (0.0-2.0); EOSINOPHILS 2.1 % (0.0-3.0); HEMATOCRIT 41.8 % (42.0-52.0); HEMOGLOBIN 13.4 gm/dL (14.0-18.0); LYMPHOCYTES 15.2 % (24.0-44.0); MCH 24.9 pg (26.0-34.0); MCHC 32.1 g/dL (28.0-37.0); MCV 77.6 fL (80.0-100.0); MONOCYTES 9.8 % (1.0-8.0); PLATELET COUNT 272 thou/uL (150-400); RBC 5.39 mil/uL (4.50-6.00); RDW 16.8 % (10.5-14.5); WBC 12.4 thou/uL (4.0-11.0)
[2020-01-23 14:27] LABS: ANION GAP 5 mmol/L (7-16); BUN 15 mg/dL (7-18); CALCIUM 9.4 mg/dL (8.5-10.1); CHLORIDE 100 mmol/L (98-107); CO2 31 mmol/L (21-32); CREATININE 1.1 mg/dL (0.7-1.3); GLUCOSE 126 mg/dL (74-106); POTASSIUM 4.6 mmol/L (3.5-5.1); SODIUM 136 mmol/L (136-145)
[2020-01-23 14:37] LABS: ALBUMIN 3.6 g/dL (3.4-5.0); SGOT 56 U/L (15-37); SGPT 104 U/L (30-65); TOTAL BILIRUBIN 1.2 mg/dL (<0.1-1.0); TOTAL PROTEIN 8.2 g/dL (6.4-8.2); TROPONIN-I <0.06 ng/mL (<0.06)
[2020-01-23] MEDS ORDERED: PROMETH-CODEIN 65 ML PO (14:40)
[2020-01-23] MEDS ORDERED: PROAIR HFA8.5 GM INH (14:40)
[2020-01-23] MEDS ORDERED: DOXYCYCLINE 10100 MG PO (14:40)
[2020-01-23] MEDS ORDERED: FLONASE 0.05%50 MCG NARES (14:55)
== END 2020-01-23 15:20 | disposition home or self-care (01) ==
LOC: ER 11:57
PROVIDERS: Physician Assistant
DX: J18.9 Pneumonia, unspecified organism (principal); I11.0 Hypertensive heart disease with heart failure; I50.30 Unspecified diastolic (congestive) heart failure; I48.91 Unspecified atrial fibrillation; E78.5 Hyperlipidemia, unspecified; Z95.5 Presence of coronary angioplasty implant and graft; Z87.891 Personal history of nicotine dependence; Z88.0 Allergy status to penicillin; Z88.8 Allergy status to other drugs, medicaments and biological substances

== ENCOUNTER 2020-10-12 15:40 | Emergency (ER) | payer BC ==
[~2020-10-12] VITALS: Ht 182.9 cm; Wt 117.9 kg
[~2020-10-12 15:40] MED LIST changes: +DOXYCYCLINE 10100 MG PO; +FLONASE 0.05%50 MCG NARES; +PROMETH-CODEIN 65 ML PO
[2020-10-12 18:30] LABS: BASOPHILS 0.5 % (0.0-2.0); EOSINOPHILS 6.3 % (0.0-3.0); HEMATOCRIT 42.4 % (42.0-52.0); HEMOGLOBIN 13.3 gm/dL (14.0-18.0); LYMPHOCYTES 12.6 % (24.0-44.0); MCH 25.2 pg (26.0-34.0); MCHC 31.4 g/dL (28.0-37.0); MCV 80.4 fL (80.0-100.0); MONOCYTES 8.7 % (1.0-8.0); PLATELET COUNT 219 thou/uL (150-400); POLYS 71.9 % (36.0-66.0); RBC 5.28 mil/uL (4.50-6.00); RDW 17.1 % (10.5-14.5); WBC 9.7 thou/uL (4.0-11.0)
[2020-10-12 18:31] LABS: CALCIUM 9.3 mg/dL (8.5-10.1); CREATININE 0.8 mg/dL (0.7-1.3); POTASSIUM 4.4 mmol/L (3.5-5.1)
[2020-10-12] MEDS ORDERED: TESSALON PERLE100 M1 PO (20:05)
[2020-10-12 20:16] VITALS: BP 143/72
== END 2020-10-12 20:15 | disposition home or self-care (01) ==
LOC: ER 15:40
PROVIDERS: Emergency Medicine
DX: R05 Cough (principal); I10 Essential (primary) hypertension; E78.5 Hyperlipidemia, unspecified; Z79.899 Other long term (current) drug therapy; Z87.891 Personal history of nicotine dependence; Z88.0 Allergy status to penicillin; Z88.6 Allergy status to analgesic agent; Z88.8 Allergy status to other drugs, medicaments and biological substances; Z20.828 Contact with and (suspected) exposure to other viral communicable diseases

== ENCOUNTER 2020-12-21 01:54 | Emergency (ER) | payer BC ==
[~2020-12-21] VITALS: Ht 182.9 cm; Wt 117.9 kg
[~2020-12-21 01:54] MED LIST changes: +TESSALON PERLE100 M1 PO
[2020-12-21 03:10] LABS: URINE BILIRUBIN NEGATIVE (Negative); URINE BLOOD NEGATIVE (Negative); URINE CLARITY CLEAR; URINE COLOR YELLOW; URINE GLUCOSE-RANDOM* NEGATIVE (Negative); URINE KETONES NEGATIVE (Negative); URINE LEUKOCYTES-REFLEX NEGATIVE (Negative); URINE NITRITE-REFLEX NEGATIVE (Negative); URINE PROTEIN (DIPSTICK) NEGATIVE (Negative); URINE SPECIFIC GRAVITY >= 1.030 (1.005-1.035)
[2020-12-21 03:13] LABS: ABSOLUTE NEUTROPHILS 4.8 thou/uL (1.4-8.2); BASOPHILS 0.6 % (0.0-2.0); EOSINOPHILS 4.9 % (0.0-3.0); HEMATOCRIT 40.2 % (42.0-52.0); HEMOGLOBIN 12.9 gm/dL (14.0-18.0); LYMPHOCYTES 18.9 % (24.0-44.0); MCV 81.3 fL (80.0-100.0); MONOCYTES 10.2 % (1.0-8.0); PLATELET COUNT 174 thou/uL (150-400); POLYS 65.4 % (36.0-66.0); RBC 4.95 mil/uL (4.50-6.00); RDW 16.3 % (10.5-14.5); WBC 7.4 thou/uL (4.0-11.0)
[2020-12-21 03:27] LABS: ANION GAP 5 mmol/L (7-16); BUN 15 mg/dL (7-18); CALCIUM 8.3 mg/dL (8.5-10.1); CHLORIDE 104 mmol/L (98-107); CO2 28 mmol/L (21-32); CREATININE 1.2 mg/dL (0.7-1.3); GLUCOSE 137 mg/dL (74-106); POTASSIUM 3.5 mmol/L (3.5-5.1); SODIUM 137 mmol/L (136-145)
[2020-12-21 03:34] LABS: ALBUMIN 3.4 g/dL (3.4-5.0); SGOT 40 U/L (15-37); SGPT 61 U/L (30-65); TOTAL BILIRUBIN 0.9 mg/dL (0.2-1.0); TROPONIN-I <0.06 ng/mL (<0.06)
[2020-12-21] MEDS ORDERED: TESSALON PERLE100 M1 PO (03:48)
[2020-12-21 03:58] VITALS: BP 125/75
--- NOTE | 2020-12-21 07:04 | EKG ---
[facility] [place] [address] ELECTROCARDIOGRAM REPORT Name: BHAVANA LARSON Room #: [facility] DAISY Reyes#: [id number] Admission: 12/21/20 Attend Phys: Discharge: 12/21/20 Date of : 74 Report #: [id number] [facility] ED Test Date: 2020-12-21 Test Time: 02:33:02 Pat Name: BHAVANA LARSON Department: Room: Gender: M Process Designer: kev : 1970 Requested By: Bandar Arteaga Order Number: [id number] MD: Garrett Abbott Measurements Intervals [place] Rate: 92 P: 53 [place]: 197 QRS: 66 QRSD: 94 T: 258 QT: 361 QTc: 447 Interpretive Statements Sinus rhythm Borderline prolonged [place] interval Left atrial enlargement Probable LVH with secondary repol abnrm ST depression, consider ischemia, diffuse lds Compared to ECG 01/23/2020 12:46:54 Possible ischemia now present ST (T wave) deviation still present Electronically Signed On 12-21-2020 7:03:56 PAPER PRODUCTS SUPERVISOR by Garrett Abbott [email or web address] <ELECTRONICALLY SIGNED> By: Garrett Abbott MD, [facility] 12/21/20 07 0233 0233 Garrett Abbott MD, FACC /EPI
== END 2020-12-21 03:59 | disposition home or self-care (01) ==
LOC: ER 01:54
PROVIDERS: Emergency Medicine
DX: J06.9 Acute upper respiratory infection, unspecified (principal); B97.89 Other viral agents as the cause of diseases classified elsewhere; R06.02 Shortness of breath; I10 Essential (primary) hypertension; E78.5 Hyperlipidemia, unspecified; I48.91 Unspecified atrial fibrillation; Z79.899 Other long term (current) drug therapy; Z87.891 Personal history of nicotine dependence; Z88.0 Allergy status to penicillin; Z88.6 Allergy status to analgesic agent; Z88.8 Allergy status to other drugs, medicaments and biological substances; Z20.822 Contact with and (suspected) exposure to COVID-19

== ENCOUNTER → 2021-06-01 | Outpatient (CLI) | payer OTHER | LOC: SJCVCIMAG 05-27 07:16 | PROVIDERS: ATTEND Internal Medicine Cardiovascular Disease | DX: I11.0 Hypertensive heart disease with heart failure (principal); I50.9 Heart failure, unspecified; R00.0 Tachycardia, unspecified; E11.9 Type 2 diabetes mellitus without complications; I48.91 Unspecified atrial fibrillation; G47.30 Sleep apnea, unspecified ==